=== PATIENT | female | born 1935 | race Caucasian/White ===

== ENCOUNTER 2020-11-19 11:20 | Inpatient (IN) ==
[2020-11-19 11:30] VITALS: BMI 27.4
[2020-11-19 12:55] LABS: BILIRUBIN,URINE NEGATIVE (NEGATIVE); BLOOD/HEMOGLOBIN,URINE 2+ (NEGATIVE); GLUCOSE, URINE NEGATIVE (NEGATIVE); KETONES,URINE NEGATIVE (NEGATIVE); LEUKOCYTE ESTERASE ,URINE 2+ (NEGATIVE); NITRITES,URINE POSITIVE (NEGATIVE); PROTEIN,URINE 3+ (NEGATIVE); UROBILINOGEN,URINE 1+ (NORMAL)
[2020-11-19 13:08] LABS: APPEARANCE,URINE CLEAR (CLEAR); BACTERIA,URINE 2+ /HPF (NEGATIVE); COLOR,URINE AMBER (YELLOW); RBC,URINE 0-2 /HPF (0-3); SQUAMOUS EPITHELIAL CELL,UR FEW /HPF (NEGATIVE)
[2020-11-19 14:39] LABS: BASOPHILS # (AUTO) 0.1 X10^3/uL (0.0-0.1); BLOOD UREA NITROGEN 45 mg/dL (7-18); CALCIUM 10.2 mg/dL (8.5-10.1); CARBON DIOXIDE 22.9 mmol/L (21-32); CHLORIDE 98 mmol/L (98-107); CREATININE 2.71 mg/dL (0.55-1.02); EOSINOPHILS # (AUTO) 0.3 x10^3/uL (0.0-0.2); HEMATOCRIT 42.5 % (36.0-47.0); HEMOGLOBIN 14.3 g/dL (12.0-16.0); LYMPHOCYTES # (AUTO) 1.4 X10^3/uL (1.3-2.9); LYMPHOCYTES % (AUTO) 18.8 % (21.0-51.0); MEAN CORPUSCULAR HEMOGLOBIN 32.7 pg (27.0-34.0); MEAN CORPUSCULAR HGB CONC 33.6 g/dL (33.0-35.0); MEAN CORPUSCULAR VOLUME 97.1 fL (80.0-100.0); MONOCYTES # (AUTO) 0.8 x10^3/uL (0.3-0.8); MONOCYTES % (AUTO) 11.2 % (0.0-13.0); NEUTROPHILS # (AUTO) 4.8 x10^3/uL (2.2-4.8); PLATELET COUNT 212 X10^3/uL (150.0-450.0); RED BLOOD COUNT 4.38 X10^6/uL (3.5-5.4); SODIUM 128 mmol/L (136-145); WHITE BLOOD COUNT 7.3 X10^3/uL (3.6-10.0); eGFR NON BLACK RACES 18 (>60)
[2020-11-19 14:43] LABS: ALANINE AMINOTRANSFERASE 31 Units/L (12-78); ALBUMIN 4.1 g/dL (3.4-5.0); ALKALINE PHOSPHATASE 54 Units/L (46-116); ASPARTATE AMINO TRANSFERASE 27 Units/L (15-37); TOTAL PROTEIN 7.7 g/dL (6.4-8.2)
--- NOTE | 2020-11-19 14:56 | DR.GENAD ---
HPI Time Seen Time Seen by Provider: 11/19/20 14:54 PCP Primary Care Physician: ALEX LEA HPI Comment HPI Comment: Patient presents for evaluation of abnormal outpatient labs. Called by her doctor today with elevated potassium and advised to come to ED. notes that she has had some N/V and muscle cramping. Patient had been treated with Bactrim for UTI. Complaint/Symptoms Chief Complaint:: PT. SEEN PCP ON 11/16/20 AND HAD LAB WORK. PT. WAS CALLED THIS MORNING AND TOLD TO COME TO THE ER FOR EVALUATION DUE TO ELEVATED POTASSIUM LEVEL. PT. STATES SHE WAS PLACED ON BACTRIM ON SUNDAY PER PCP DUE TO BRONCHITIS. COVID-19 Coronavirus risk:travel/contact w/high risk person: No Has patient experienced Coronavirus symptoms: No Source History Provided: Patient Mode of Arrival Mode of Arrival: Ambulatory Timing Onset of Chief Complaint: 11/16/20 PMH PMH Past Medical History: Yes Past Medical History: Hypertension Past Surgical History: Yes Surgical History: Cholecystectomy, Hysterectomy and Other Past Surgical History Comment: PACEMAKER Family History History of Family Medical Conditions: No Social History Does patient currently use any type of tobacco product: No Have you used tobacco products in the last 12 months: No Type of Tobacco Use: None Does any household member use tobacco: No Alcohol Use: None Do you use any recreational Drugs:: No Lives With: Family Lives Where: Home Travel Risk Coronavirus risk:travel/contact w/high risk person: No Has patient experienced Coronavirus symptoms: No Infectious screening In the last 2 months have you had wt loss of >10#?: NO Have you had fever, night sweats or hemotysis?: No Have you traveled outside the country in the last 6 months?: No Isolation: Standard ROS Review of Systems Constitutional: See HPI Gastrointestinal/Abdominal: Nausea Musculoskeletal: Muscle Pain, Right, Left and Leg All Other Systems: Reviewed and Negative PE Vital Signs Vitals: Temperature 97.9 F Pulse Rate 60 Respiratory Rate 15 Blood Pressure 173/73 O2 Sat by Pulse Oximetry 96 General Limitations: No Limitations General Appearance: Alert and In No Apparent Distress Head Head Exam: Normal Inspection, Atraumatic and Normocephalic Eyes Eye exam: Normal Appearance and EOMI ENT ENT Exam: Normal Exam Neck Neck Exam: Normal Inspection and Trachea Midline Chest Chest Inspection: Normal Inspection and Symmetric Chest Wall Rise Respiratory Respiratory Exam: Normal Lung Sounds Bilat Respiratory Exam: Bilateral: Clear to Auscultation Cardiovascular Cardiovascular Exam: Regular Rate, Normal Rhythm and Normal Heart Sounds Abdominal Exam Abdominal Exam: Normal Inspection, Normal Bowel Sounds and Soft Extremities Extremities Exam: Normal Inspection and Other (non-tender, no swelling, no palpable cords) Neurologic Neurological Exam: Alert and Oriented X3 Psychiatric Psychiatric Exam: Normal Affect and Normal Mood Skin Skin Exam: Warm, Dry and Intact COURSE Consultation Called: 17:35 Consultation Comments: Spoke with Dr. Xavier who accepts patient for admission ROR Labs Reviewed Laboratory Results Reviewed?: Yes Result Diagrams: 11/19/20 14:16 11/19/20 14:16 Laboratory: WBC 7.3 X10^3/uL (3.6-10.0) 11/19/20 14:16 RBC 4.38 X10^6/uL (3.5-5.4) 11/19/20 14:16 Hgb 14.3 g/dL (12.0-16.0) 11/19/20 14:16 Hct 42.5 % (36.0-47.0) 11/19/20 14:16 MCV 97.1 fL (80.0-100.0) 11/19/20 14:16 MCH 32.7 pg (27.0-34.0) 11/19/20 14:16 MCHC 33.6 g/dL (33.0-35.0) 11/19/20 14:16 RDW 13.0 % (11.6-16.5) 11/19/20 14:16 Plt Count 212 X10^3/uL (150.0-450.0) 11/19/20 14:16 MPV 8.0 fL (7.4-11.0) 11/19/20 14:16 Neut % (Auto) 65.0 % (42.0-75.0) 11/19/20 14:16 Lymph % (Auto) 18.8 % (21.0-51.0) L 11/19/20 14:16 [place] % (Auto) 11.2 % (0.0-13.0) 11/19/20 14:16 Eos % (Auto) 4.0 % (0.9-2.9) H 11/19/20 14:16 Baso % (Auto) 1.0 % (0.2-1.0) 11/19/20 14:16 Neut # (Auto) 4.8 x10^3/uL (2.2-4.8) 11/19/20 14:16 Lymph # (Auto) 1.4 X10^3/uL (1.3-2.9) 11/19/20 14:16 [place] # (Auto) 0.8 x10^3/uL (0.3-0.8) 11/19/20 14:16 Eos # (Auto) 0.3 x10^3/uL (0.0-0.2) H 11/19/20 14:16 Baso # (Auto) 0.1 X10^3/uL (0.0-0.1) 11/19/20 14:16 Absolute Nucleated RBC 0.1 /100WBC 11/19/20 14:16 Sodium 128 mmol/L (136-145) L 11/19/20 14:16 Corrected Sodium TNP 11/19/20 14:16 Potassium 7.0 mmol/L (3.5-5.1) H* 11/19/20 14:16 Chloride 98 mmol/L (98-107) 11/19/20 14:16 Carbon Dioxide 22.9 mmol/L (21-32) 11/19/20 14:16 BUN 45 mg/dL (7-18) H 11/19/20 14:16 Creatinine 2.71 mg/dL (0.55-1.02) H 11/19/20 14:16 Est GFR (MDRD) Af Amer 21 (>60) L 11/19/20 14:16 Est GFR (MDRD) Non-Af 18 (>60) L 11/19/20 14:16 Glucose 81 mg/dL (65-99) 11/19/20 14:16 Calcium 10.2 mg/dL (8.5-10.1) H 11/19/20 14:16 Corrected Calcium TNP 11/19/20 14:16 Total Bilirubin 0.40 mg/dL (0.2-1.0) 11/19/20 14:16 AST 27 Units/L (15-37) 11/19/20 14:16 ALT 31 Units/L (12-78) 11/19/20 14:16 Alkaline Phosphatase 54 Units/L (46-116) 11/19/20 14:16 Creatine Kinase 67 Units/L (26-192) 11/19/20 14:06 CK-MB (CK-2) 2.0 ng/mL (0-4.0) 11/19/20 14:06 CK/CKMB % Calc 3.0 % (<4) 11/19/20 14:06 Troponin I < 0.02 ng/mL (0-1.5) 11/19/20 14:06 Total Protein 7.7 g/dL (6.4-8.2) 11/19/20 14:16 Albumin 4.1 g/dL (3.4-5.0) 11/19/20 14:16 Globulin 3.6 g/dL (2.5-4.5) 11/19/20 14:16 Albumin/Globulin Ratio 1.1 Ratio (1.1-2.1) 11/19/20 14:16 Specimen Type Clean catch urine 11/19/20 11:55 Urine Color Bee (YELLOW) 11/19/20 11:55 Urine Appearance Clear (CLEAR) 11/19/20 11:55 Urine pH 5.0 (5.0 - 8.0) 11/19/20 11:55 Ur Specific [place] 1.010 (1.000-1.030) 11/19/20 11:55 Urine Protein 3+ (NEGATIVE) 11/19/20 11:55 Urine Glucose (UA) Negative (NEGATIVE) 11/19/20 11:55 Urine Ketones Negative (NEGATIVE) 11/19/20 11:55 Urine Occult Blood 2+ (NEGATIVE) 11/19/20 11:55 Urine Nitrite Positive (NEGATIVE) 11/19/20 11:55 Urine Bilirubin Negative (NEGATIVE) 11/19/20 11:55 Urine Urobilinogen 1+ (NORMAL) 11/19/20 11:55 Ur Leukocyte Esterase 2+ (NEGATIVE) 11/19/20 11:55 Urine RBC 0-2 /HPF (0-3) 11/19/20 11:55 Urine WBC 10-20 /HPF (0-5) A 11/19/20 11:55 Ur Squamous Epith Cells Few /HPF (NEGATIVE) 11/19/20 11:55 Urine Bacteria 2+ /HPF (NEGATIVE) 11/19/20 11:55 Ur Culture Indicated? Yes/culture set up 11/19/20 11:55 SARS CoV-2 RNA Rapid DISHA Negative (NEGATIVE) 11/19/20 16:42 Opioid Opioid Risk Tool Age (Raz box if 16-45): No History of Preadolescent Sexual Abuse: No Total: 0 Total Score Risk Category: Low Risk Copyright: Yadiel WARREN predicting aberrant behaviors Diagnosis Discharge Problem: Acute hyperkalemia Acute renal failure Qualifiers: Acute renal failure type: unspecified Qualified Code(s): N17.9 - Acute kidney failure, unspecified
[2020-11-19] MEDS ORDERED: HumuLIN R IV ONE (15:09)
[2020-11-19] MEDS ORDERED: CALCIUM GLUCONATE 10% 1 G in NS 100 ML IV 100 ML IV ONE (15:09)
[2020-11-19] MEDS ORDERED: KAYEXALATE SUSP ONE (15:40)
[2020-11-19] MEDS ORDERED: HumuLIN R ONE (15:42)
[2020-11-19] MEDS ORDERED: KAYEXALATE SUSP PO NR (16:00)
[2020-11-19 16:24] LABS: CREATINE KINASE 67 Units/L (26-192); TROPONIN I < 0.02 ng/mL (0-1.5)
[2020-11-19] MEDS ORDERED: NS 1000 ML 1,000 ML ONE (18:29)
[2020-11-19] MEDS: NS 1000 ML 1,000 ML IV SCH (18:51)
[2020-11-19] MEDS: SNACK - Diabetic Appropriate PO SCH (20:00)
[2020-11-19] MEDS: VIBRAMYCIN PO SCH (20:06)
[2020-11-19 22:18] LABS: CALCIUM 9.6 mg/dL (8.5-10.1); CARBON DIOXIDE 26.6 mmol/L (21-32); CREATININE 2.62 mg/dL (0.55-1.02)
[2020-11-19] MEDS: REQUIP PO SCH (23:49)
[2020-11-20] MEDS: NS 1000 ML 1,000 ML IV SCH ×2 (06:01→21:21)
[2020-11-20 06:19] LABS: MEAN CORPUSCULAR HEMOGLOBIN 32.1 pg (27.0-34.0); MEAN CORPUSCULAR HGB CONC 33.1 g/dL (33.0-35.0)
[2020-11-20 06:26] LABS: ALANINE AMINOTRANSFERASE 29 Units/L (12-78); ALBUMIN 3.5 g/dL (3.4-5.0); ALKALINE PHOSPHATASE 48 Units/L (46-116); ASPARTATE AMINO TRANSFERASE 24 Units/L (15-37); BLOOD UREA NITROGEN 40 mg/dL (7-18); CALCIUM 9.3 mg/dL (8.5-10.1); CARBON DIOXIDE 24.4 mmol/L (21-32); CHLORIDE 106 mmol/L (98-107); CREATININE 2.48 mg/dL (0.55-1.02); SODIUM 136 mmol/L (136-145); TOTAL PROTEIN 6.7 g/dL (6.4-8.2); eGFR NON BLACK RACES 20 (>60)
[2020-11-20 06:58] LABS: HEMATOCRIT 41.5 % (36.0-47.0); HEMOGLOBIN 13.8 g/dL (12.0-16.0); MEAN CORPUSCULAR VOLUME 97.1 fL (80.0-100.0); PLATELET COUNT 205 X10^3/uL (150.0-450.0); RED BLOOD COUNT 4.28 X10^6/uL (3.5-5.4); RED CELL DISTRIBUTION WIDTH 13.3 % (11.6-16.5); WHITE BLOOD COUNT 6.7 X10^3/uL (3.6-10.0)
[2020-11-20 06:59] LABS: BASOPHILS # (AUTO) 0.1 X10^3/uL (0.0-0.1); BASOPHILS % (AUTO) 1.9 % (0.2-1.0); EOSINOPHILS # (AUTO) 0.4 x10^3/uL (0.0-0.2); EOSINOPHILS % (AUTO) 6.1 % (0.9-2.9); LYMPHOCYTES # (AUTO) 1.5 X10^3/uL (1.3-2.9); LYMPHOCYTES % (AUTO) 22.1 % (21.0-51.0); MONOCYTES # (AUTO) 0.9 x10^3/uL (0.3-0.8); NEUTROPHILS # (AUTO) 3.7 x10^3/uL (2.2-4.8); NEUTROPHILS % (AUTO) 55.9 % (42.0-75.0)
[2020-11-20 07:00] LABS: PLATELET MORPHOLOGY COMMENT NORMAL (NORMAL)
[2020-11-20] MEDS: VIBRAMYCIN PO SCH (09:14)
[2020-11-20] MEDS: COREG TAB 25 MG PO SCH ×2 (09:14→21:22)
[2020-11-20] MEDS: ROCEPHIN VIAL 1 GRAM 1 G in NS 100 ML IV + SPIKE MINIBAG* 100 ML IV SCH (10:00)
[2020-11-20] MEDS: KAYEXALATE SUSP PO SCH ×2 (10:01→21:21)
[2020-11-20] MEDS: HEPARIN SODIUM INJ 5000 UNITS IVP SCH ×2 (10:01→21:15)
--- NOTE | 2020-11-20 11:04 | DR.H&P ---
H&P History & Physical for Day of: H&P Date: 11/20/20 Chief Complaint Chief Complaint: weakness, cramps and abnormal labs Allergies Allergies Allergy/AdvReac Type Severity Reaction Status Date / Time amlodipine [From [facility]] Allergy Verified 11/19/20 11:31 History of Present Illness History of Present Illness: Ms. Mercado is a 85y/o female who presented with ab normal labs done at her PCP office on . Patient was being treated for UTI and started on Bactrim. She had labs done and was told yesterday that her potassium was elevated. She states she only took Bactrim for 2 days because it made her feel sick. She has a hx of atrial fibrillation s/p pacemaker, urinary incontinence and HTN. Patient reports feeling better this AM. She does have productive cough. Denies fever or chills. ED work-up - Labs K 7.0 Cr: 2.71 trop (-) - UA: suggestive of infection - COVID-19 negative She was given calcium gluconate, IV insulin and kayexalate. She was also started on IVF and doxycycline. Plan: potassium improved to 5.8 this AM. Will continue Kayexalate. Continue normal saline at 100cc/hr. Switch doxycycline to Rocephin. Follow urine culture. Hold Eliquis due to poor renal function. Hold aldactone due to hyperkalemia. Will get CXR to rule out infection. Resume home medications. Monitor AM labs. Past Medical History Past Medical History: Hypertension Additional Medical History: Atrial fibrillation Past Surgical History Surgical History: Cholecystectomy and Hysterectomy Social History Does patient currently use any type of tobacco product: No Have you used tobacco products in the last 12 months: No Type of Tobacco Use: None Does any household member use tobacco: No Alcohol Use: None Drug Use: Prescription Drugs Medications Home Medications: amlodipine [From [facility]] Allergy (Verified 11/19/20 11:31) CONTINUE taking the following medications apixaban [Eliquis] 5 mg PO BID 11/19/20 [History] carvedilol 12.5 mg PO BID 11/19/20 [History] cetirizine [Allergy Relief (cetirizine)] 10 mg PO DAILY 11/19/20 [History] mirabegron [Myrbetriq] 25 mg PO DAILY 11/19/20 [History] ropinirole 0.25 mg PO HS 11/19/20 [History] spironolactone 25 mg PO BID 11/19/20 [History] sulfamethoxazole-trimethoprim [Bactrim DS] 1 tab PO BID 11/19/20 [History] Labs Result Diagrams: 11/20/20 05:29 11/20/20 05:29 Labs: 11/19/20 11:55 Urine,Clean Catch Urine Culture - Preliminary Laboratory WBC 6.7 X10^3/uL (3.6-10.0) 11/20/20 05:29 RBC 4.28 X10^6/uL (3.5-5.4) 11/20/20 05:29 Hgb 13.8 g/dL (12.0-16.0) 11/20/20 05:29 Hct 41.5 % (36.0-47.0) 11/20/20 05:29 MCV 97.1 fL (80.0-100.0) 11/20/20 05:29 MCH 32.1 pg (27.0-34.0) 11/20/20 05:29 MCHC 33.1 g/dL (33.0-35.0) 11/20/20 05:29 RDW 13.3 % (11.6-16.5) 11/20/20 05:29 Plt Count 205 X10^3/uL (150.0-450.0) 11/20/20 05:29 Plt Count Comment Adequate (ADEQUATE) 11/20/20 05:29 MPV 8.0 fL (7.4-11.0) 11/20/20 05:29 Neut % (Auto) 55.9 % (42.0-75.0) 11/20/20 05:29 Lymph % (Auto) 22.1 % (21.0-51.0) 11/20/20 05:29 [place] % (Auto) 14.0 % (0.0-13.0) H 11/20/20 05:29 Eos % (Auto) 6.1 % (0.9-2.9) H 11/20/20 05:29 Baso % (Auto) 1.9 % (0.2-1.0) H 11/20/20 05:29 Neut # (Auto) 3.7 x10^3/uL (2.2-4.8) 11/20/20 05:29 Lymph # (Auto) 1.5 X10^3/uL (1.3-2.9) 11/20/20 05:29 [place] # (Auto) 0.9 x10^3/uL (0.3-0.8) H 11/20/20 05:29 Eos # (Auto) 0.4 x10^3/uL (0.0-0.2) H 11/20/20 05:29 Baso # (Auto) 0.1 X10^3/uL (0.0-0.1) 11/20/20 05:29 Absolute Nucleated RBC 0.1 /100WBC 11/20/20 05:29 Total Counted 100 11/20/20 05:29 Neutrophils % (Manual) 63 % (39-76) 11/20/20 05:29 Lymphocytes % (Manual) 20 % (13-43) 11/20/20 05:29 Monocytes % (Manual) 12 % (4-9) H 11/20/20 05:29 Eosinophils % (Manual) 5 % (0-6) 11/20/20 05:29 Plt Morphology Comment Normal (NORMAL) 11/20/20 05:29 RBC Morphology Normal (NORMAL) 11/20/20 05:29 Sodium 136 mmol/L (136-145) 11/20/20 05:29 Corrected Sodium TNP 11/20/20 05:29 Potassium 5.8 mmol/L (3.5-5.1) H 11/20/20 05:29 Chloride 106 mmol/L (98-107) 11/20/20 05:29 Carbon Dioxide 24.4 mmol/L (21-32) 11/20/20 05:29 BUN 40 mg/dL (7-18) H 11/20/20 05:29 Creatinine 2.48 mg/dL (0.55-1.02) H 11/20/20 05:29 Est GFR (MDRD) Af Amer 24 (>60) L 11/20/20 05:29 Est GFR (MDRD) Non-Af 20 (>60) L 11/20/20 05:29 Glucose 80 mg/dL (65-99) 11/20/20 05:29 POC Glucose (mg/dL) 77 mg/dL (65-99) 11/20/20 05:41 Calcium 9.3 mg/dL (8.5-10.1) 11/20/20 05:29 Corrected Calcium TNP 11/20/20 05:29 Total Bilirubin 0.30 mg/dL (0.2-1.0) 11/20/20 05:29 AST 24 Units/L (15-37) 11/20/20 05:29 ALT 29 Units/L (12-78) 11/20/20 05:29 Alkaline Phosphatase 48 Units/L (46-116) 11/20/20 05:29 Creatine Kinase 67 Units/L (26-192) 11/19/20 14:06 CK-MB (CK-2) 2.0 ng/mL (0-4.0) 11/19/20 14:06 CK/CKMB % Calc 3.0 % (<4) 11/19/20 14:06 Troponin I < 0.02 ng/mL (0-1.5) 11/19/20 14:06 Total Protein 6.7 g/dL (6.4-8.2) 11/20/20 05:29 Albumin 3.5 g/dL (3.4-5.0) 11/20/20 05:29 Globulin 3.2 g/dL (2.5-4.5) 11/20/20 05:29 Albumin/Globulin Ratio 1.1 Ratio (1.1-2.1) 11/20/20 05:29 Specimen Type Clean catch urine 11/19/20 11:55 Urine Color Bee (YELLOW) 11/19/20 11:55 Urine Appearance Clear (CLEAR) 11/19/20 11:55 Urine pH 5.0 (5.0 - 8.0) 11/19/20 11:55 Ur Specific [place] 1.010 (1.000-1.030) 11/19/20 11:55 Urine Protein 3+ (NEGATIVE) 11/19/20 11:55 Urine Glucose (UA) Negative (NEGATIVE) 11/19/20 11:55 Urine Ketones Negative (NEGATIVE) 11/19/20 11:55 Urine Occult Blood 2+ (NEGATIVE) 11/19/20 11:55 Urine Nitrite Positive (NEGATIVE) 11/19/20 11:55 Urine Bilirubin Negative (NEGATIVE) 11/19/20 11:55 Urine Urobilinogen 1+ (NORMAL) 11/19/20 11:55 Ur Leukocyte Esterase 2+ (NEGATIVE) 11/19/20 11:55 Urine RBC 0-2 /HPF (0-3) 11/19/20 11:55 Urine WBC 10-20 /HPF (0-5) A 11/19/20 11:55 Ur Squamous Epith Cells Few /HPF (NEGATIVE) 11/19/20 11:55 Urine Bacteria 2+ /HPF (NEGATIVE) 11/19/20 11:55 Ur Culture Indicated? Yes/culture set up 11/19/20 11:55 SARS CoV-2 RNA Rapid DISHA Negative (NEGATIVE) 11/19/20 16:42 Review of Systems Constitutional: Weakness Eyes: No Symptoms Reported ENT: No Symptoms Reported Respiratory: Cough and Sputum Cardiovascular: No Symptoms Reported Gastrointestinal: Nausea Genitourinary: Incontinence Musculoskeletal: Leg Pain Skin: No Symptoms Reported Neurological: No Symptoms Reported Physical Exam Vital Signs: Temperature 97.1 F Pulse Rate [Right Brachial] 117 Pulse Rate 60 Respiratory Rate 18 Blood Pressure [Right Arm] 144/65 Blood Pressure 173/69 O2 Sat by Pulse Oximetry 97 Oriented: Normal Eyes: Normal Ear: Normal Nose: Normal Throat: Normal Respiratory: Diminished Throughout Cardiovascular: Normal Auscultation: Bowel Sounds: Normal Palpation: Normal Tenderness: Normal Skin: Decreased [place] Musculoskeletal: Normal Psychiatric: Normal Mood Description: Calm Affect: Normal Speech Pattern: Clear and Appropriate Assessment/Plan (1) Acute renal failure: Qualifiers: Acute renal failure type: unspecified Qualified Code(s): N17.9 - Acute kidney failure, unspecified Status: Acute (2) Acute hyperkalemia: Status: Acute (3) UTI (urinary tract infection): Qualifiers: Hematuria presence: without hematuria Urinary tract infection type: acute cystitis Qualified Code(s): N30.00 - Acute cystitis without hematuria Status: Acute (4) Pacemaker: Status: Acute (5) Urinary incontinence: Qualifiers: Urinary Incontinence type: unspecified incontinence Qualified Code(s): R32 - Unspecified urinary incontinence Status: Acute (6) Atrial fibrillation: Qualifiers: Atrial fibrillation type: unspecified chronic Qualified Code(s): I48.20 - Chronic atrial fibrillation, unspecified Status: Acute Review H&P Reviewed: Yes Patient was examined?: Yes
--- NOTE | 2020-11-20 12:35 | RAD ---
HISTORYProductive cough renal failureSTUDYAP [id number] mild cardiac enlargement with pacemaker. The lungs and pleural spaces remain clear. There is no evidence for CHF or pneumonia.IMPRESSIONNo interval change or acute chest abnormality demonstrated.Electronically signed by: SOLO CRAMER (Nov 20, 2020 12:32:50)
[2020-11-20] MEDS: REQUIP PO SCH (21:21)
[2020-11-20] MEDS: SNACK - Diabetic Appropriate PO SCH (21:22)
[2020-11-21] MEDS: ZOFRAN INJ 4 MG VIAL IVP PRN ×2 (03:39→14:06)
[2020-11-21 06:42] LABS: BASOPHILS # (AUTO) 0.2 X10^3/uL (0.0-0.1); BASOPHILS % (AUTO) 3.5 % (0.2-1.0); EOSINOPHILS # (AUTO) 0.4 x10^3/uL (0.0-0.2); EOSINOPHILS % (AUTO) 6.9 % (0.9-2.9); HEMATOCRIT 39.3 % (36.0-47.0); HEMOGLOBIN 12.9 g/dL (12.0-16.0); LYMPHOCYTES % (AUTO) 15.8 % (21.0-51.0); MEAN CORPUSCULAR HEMOGLOBIN 32.2 pg (27.0-34.0); MEAN CORPUSCULAR HGB CONC 32.8 g/dL (33.0-35.0); MEAN CORPUSCULAR VOLUME 98.2 fL (80.0-100.0); MEAN PLATELET VOLUME 8.2 fL (7.4-11.0); MONOCYTES % (AUTO) 16.6 % (0.0-13.0); NEUTROPHILS # (AUTO) 3.6 x10^3/uL (2.2-4.8); NEUTROPHILS % (AUTO) 57.2 % (42.0-75.0); PLATELET COUNT 203 X10^3/uL (150.0-450.0); RED CELL DISTRIBUTION WIDTH 13.5 % (11.6-16.5); WHITE BLOOD COUNT 6.2 X10^3/uL (3.6-10.0)
[2020-11-21 07:12] LABS: BLOOD UREA NITROGEN 31 mg/dL (7-18); CALCIUM 8.6 mg/dL (8.5-10.1); CARBON DIOXIDE 22.7 mmol/L (21-32); CHLORIDE 110 mmol/L (98-107); CREATININE 2.05 mg/dL (0.55-1.02); SODIUM 140 mmol/L (136-145); eGFR NON BLACK RACES 24 (>60)
[2020-11-21] MEDS: HEPARIN SODIUM INJ 5000 UNITS IVP SCH (08:01)
[2020-11-21] MEDS: ROCEPHIN VIAL 1 GRAM 1 G in NS 100 ML IV + SPIKE MINIBAG* 100 ML IV SCH (08:02)
[2020-11-21] MEDS: KAYEXALATE SUSP PO SCH ×3 (09:48→20:20)
[2020-11-21] MEDS: COREG TAB 25 MG PO SCH ×2 (09:48→20:13)
[2020-11-21] MEDS: NS 1000 ML 1,000 ML IV SCH ×2 (09:49→22:16)
[2020-11-21] MEDS: ELIQUIS PO SCH ×2 (10:14→20:13)
[2020-11-21] MEDS ORDERED: TYLENOL 325 MG TAB PO PRN (18:56)
--- NOTE | 2020-11-21 19:00 | PCM.PROG ---
Progress Note Progress Note for Day of Date of Exam: 11/22/20 Subjective Subjective: Patient seen at bedside, no overnight events. She states she feels better. She has been ambulating to the bathroom. She still feels weak. She has been eating well. She states cough is better. Denies fever or chills. Labs: K: 4.9 Cr: 2.05 CXR: no acute process Urine Cx: klebsiella Plan: continue gentle hydration, PT/OT consult. Continue Rocephin. Resume eliquis since renal function has improved. Asked the nurse to ambulate with patient in the room and see how she feels. Patient states she does have family at home to take care of her. Discussed that if she is feeling better by this afternoon/evening then can discharge her home or likely tomorrow. Patient verbalized understanding. She will f/u with PCP in 3 days to repeat BMP. Past Medical Family Social History Past Med/Fam/Surg Hx: No changes since H&P Allergies: Allergies amlodipine [From [facility]] Allergy (Verified 11/19/20 11:31) Review of Systems ROS: No change since H&P Vital Signs and I&O's Vital Signs: Temperature 98.6 F Pulse Rate [Right Brachial] 95 Pulse Rate 60 Respiratory Rate 20 Blood Pressure [Right Arm] 161/80 Blood Pressure 173/69 O2 Sat by Pulse Oximetry 95 Intake and Output: Intake & Output 11/18/20 11/19/20 11/20/20 11/21/20 23:59 23:59 23:59 23:59 Intake Total 505 / 505 2159 / 2159 1497 / 1497 Output Total 350 / 350 Balance 505 / 505 2159 / 2159 1147 / 1147 Physical Exam Oriented: Normal Eyes: Normal Ear: Normal Nose: Normal Throat: Normal Respiratory: Generalized and Diminished Cardiovascular: Normal Auscultation: Bowel Sounds: Normal Tenderness: Normal Skin: Decreased [place]urg[place] Musculoskeletal: Normal Psychiatric: Normal Mood Description: Calm Affect: Normal Speech Pattern: Clear Laboratory and Diagnostics Result Diagrams: 11/22/20 06:14 11/22/20 06:14 Labs: 11/19/20 11:55 Urine,Clean Catch Urine Culture - Final Klebsiella Pneumoniae Laboratory WBC 6.2 X10^3/uL (3.6-10.0) 11/21/20 05:19 RBC 4.00 X10^6/uL (3.5-5.4) 11/21/20 05:19 Hgb 12.9 g/dL (12.0-16.0) 11/21/20 05:19 Hct 39.3 % (36.0-47.0) 11/21/20 05:19 MCV 98.2 fL (80.0-100.0) 11/21/20 05:19 MCH 32.2 pg (27.0-34.0) 11/21/20 05:19 MCHC 32.8 g/dL (33.0-35.0) L 11/21/20 05:19 RDW 13.5 % (11.6-16.5) 11/21/20 05:19 Plt Count 203 X10^3/uL (150.0-450.0) 11/21/20 05:19 Plt Count Comment Adequate (ADEQUATE) 11/20/20 05:29 MPV 8.2 fL (7.4-11.0) 11/21/20 05:19 Neut % (Auto) 57.2 % (42.0-75.0) 11/21/20 05:19 Lymph % (Auto) 15.8 % (21.0-51.0) L 11/21/20 05:19 [place] % (Auto) 16.6 % (0.0-13.0) H 11/21/20 05:19 Eos % (Auto) 6.9 % (0.9-2.9) H 11/21/20 05:19 Baso % (Auto) 3.5 % (0.2-1.0) H 11/21/20 05:19 Neut # (Auto) 3.6 x10^3/uL (2.2-4.8) 11/21/20 05:19 Lymph # (Auto) 1.0 X10^3/uL (1.3-2.9) L 11/21/20 05:19 [place] # (Auto) 1.0 x10^3/uL (0.3-0.8) H 11/21/20 05:19 Eos # (Auto) 0.4 x10^3/uL (0.0-0.2) H 11/21/20 05:19 Baso # (Auto) 0.2 X10^3/uL (0.0-0.1) H 11/21/20 05:19 Absolute Nucleated RBC 0.0 /100WBC 11/21/20 05:19 Total Counted 100 11/20/20 05:29 Neutrophils % (Manual) 63 % (39-76) 11/20/20 05:29 Lymphocytes % (Manual) 20 % (13-43) 11/20/20 05:29 Monocytes % (Manual) 12 % (4-9) H 11/20/20 05:29 Eosinophils % (Manual) 5 % (0-6) 11/20/20 05:29 Plt Morphology Comment Normal (NORMAL) 11/20/20 05:29 RBC Morphology Normal (NORMAL) 11/20/20 05:29 Sodium 140 mmol/L (136-145) 11/21/20 05:19 Corrected Sodium TNP 11/21/20 05:19 Potassium 4.9 mmol/L (3.5-5.1) 11/21/20 05:19 Chloride 110 mmol/L (98-107) H 11/21/20 05:19 Carbon Dioxide 22.7 mmol/L (21-32) 11/21/20 05:19 BUN 31 mg/dL (7-18) H 11/21/20 05:19 Creatinine 2.05 mg/dL (0.55-1.02) H 11/21/20 05:19 Est GFR (MDRD) Af Amer 30 (>60) L 11/21/20 05:19 Est GFR (MDRD) Non-Af 24 (>60) L 11/21/20 05:19 Glucose 82 mg/dL (65-99) 11/21/20 05:19 POC Glucose (mg/dL) 100 mg/dL (65-99) H 11/21/20 16:38 Calcium 8.6 mg/dL (8.5-10.1) 11/21/20 05:19 Corrected Calcium TNP 11/20/20 05:29 Total Bilirubin 0.30 mg/dL (0.2-1.0) 11/20/20 05:29 AST 24 Units/L (15-37) 11/20/20 05:29 ALT 29 Units/L (12-78) 11/20/20 05:29 Alkaline Phosphatase 48 Units/L (46-116) 11/20/20 05:29 Creatine Kinase 67 Units/L (26-192) 11/19/20 14:06 CK-MB (CK-2) 2.0 ng/mL (0-4.0) 11/19/20 14:06 CK/CKMB % Calc 3.0 % (<4) 11/19/20 14:06 Troponin I < 0.02 ng/mL (0-1.5) 11/19/20 14:06 Total Protein 6.7 g/dL (6.4-8.2) 11/20/20 05:29 Albumin 3.5 g/dL (3.4-5.0) 11/20/20 05:29 Globulin 3.2 g/dL (2.5-4.5) 11/20/20 05:29 Albumin/Globulin Ratio 1.1 Ratio (1.1-2.1) 11/20/20 05:29 Specimen Type Clean catch urine 11/19/20 11:55 Urine Color Bee (YELLOW) 11/19/20 11:55 Urine Appearance Clear (CLEAR) 11/19/20 11:55 Urine pH 5.0 (5.0 - 8.0) 11/19/20 11:55 Ur Specific [place] 1.010 (1.000-1.030) 11/19/20 11:55 Urine Protein 3+ (NEGATIVE) 11/19/20 11:55 Urine Glucose (UA) Negative (NEGATIVE) 11/19/20 11:55 Urine Ketones Negative (NEGATIVE) 11/19/20 11:55 Urine Occult Blood 2+ (NEGATIVE) 11/19/20 11:55 Urine Nitrite Positive (NEGATIVE) 11/19/20 11:55 Urine Bilirubin Negative (NEGATIVE) 11/19/20 11:55 Urine Urobilinogen 1+ (NORMAL) 11/19/20 11:55 Ur Leukocyte Esterase 2+ (NEGATIVE) 11/19/20 11:55 Urine RBC 0-2 /HPF (0-3) 11/19/20 11:55 Urine WBC 10-20 /HPF (0-5) A 11/19/20 11:55 Ur Squamous Epith Cells Few /HPF (NEGATIVE) 11/19/20 11:55 Urine Bacteria 2+ /HPF (NEGATIVE) 11/19/20 11:55 Ur Culture Indicated? Yes/culture set up 11/19/20 11:55 SARS CoV-2 RNA Rapid DISHA Negative (NEGATIVE) 11/19/20 16:42 Plan (1) Acute renal failure: Status: Acute Qualifiers: Acute renal failure type: unspecified Qualified Code(s): N17.9 - Acute kidney failure, unspecified (2) Acute hyperkalemia: Status: Acute (3) UTI (urinary tract infection): Status: Acute Qualifiers: Hematuria presence: without hematuria Urinary tract infection type: acute cystitis Qualified Code(s): N30.00 - Acute cystitis without hematuria (4) Pacemaker: Status: Acute (5) Urinary incontinence: Status: Acute Qualifiers: Urinary Incontinence type: unspecified incontinence Qualified Code(s): R32 - Unspecified urinary incontinence (6) Atrial fibrillation: Status: Acute Qualifiers: Atrial fibrillation type: unspecified chronic Qualified Code(s): I48.20 - Chronic atrial fibrillation, unspecified
[2020-11-21] MEDS: SNACK - Diabetic Appropriate PO SCH (20:13)
[2020-11-21] MEDS: REQUIP PO SCH (20:14)
[2020-11-22] MEDS: NS 1000 ML 1,000 ML IV SCH ×3 (04:46→17:44)
[2020-11-22 06:42] LABS: BASOPHILS # (AUTO) 0.2 X10^3/uL (0.0-0.1); BASOPHILS % (AUTO) 3.3 % (0.2-1.0); EOSINOPHILS # (AUTO) 0.4 x10^3/uL (0.0-0.2); EOSINOPHILS % (AUTO) 6.1 % (0.9-2.9); HEMATOCRIT 38.1 % (36.0-47.0); HEMOGLOBIN 12.6 g/dL (12.0-16.0); LYMPHOCYTES % (AUTO) 14.5 % (21.0-51.0); MEAN CORPUSCULAR HEMOGLOBIN 32.2 pg (27.0-34.0); MEAN CORPUSCULAR VOLUME 97.6 fL (80.0-100.0); MEAN PLATELET VOLUME 7.9 fL (7.4-11.0); MONOCYTES # (AUTO) 1.1 x10^3/uL (0.3-0.8); NEUTROPHILS # (AUTO) 4.3 x10^3/uL (2.2-4.8); NEUTROPHILS % (AUTO) 60.1 % (42.0-75.0); PLATELET COUNT 190 X10^3/uL (150.0-450.0); RED CELL DISTRIBUTION WIDTH 13.7 % (11.6-16.5); WHITE BLOOD COUNT 7.1 X10^3/uL (3.6-10.0)
[2020-11-22 06:48] LABS: BLOOD UREA NITROGEN 21 mg/dL (7-18); CALCIUM 7.7 mg/dL (8.5-10.1); CARBON DIOXIDE 23.4 mmol/L (21-32); CHLORIDE 111 mmol/L (98-107); CREATININE 1.58 mg/dL (0.55-1.02); SODIUM 143 mmol/L (136-145); eGFR NON BLACK RACES 33 (>60)
[2020-11-22] MEDS: COREG TAB 25 MG PO SCH ×2 (09:04→21:40)
[2020-11-22] MEDS: ELIQUIS PO SCH ×2 (09:04→21:40)
[2020-11-22] MEDS: ROCEPHIN VIAL 1 GRAM 1 G in NS 100 ML IV + SPIKE MINIBAG* 100 ML IV SCH (09:05)
[2020-11-22] MEDS ORDERED: CATAPRES-TTS-2 TD SCH (10:00)
--- NOTE | 2020-11-22 11:19 | PCM.PROG ---
Progress Note - Progress Note for Day of Date of Exam: 11/22/20 - Subjective Subjective: WAS ADMITTED ON 11/19 FOR TREATMENT OF ACUTE RENAL FAILURE, ACUTE HYPERKALEMIA, AND A URINARY TRACT INFECTION. SHE WAS STARTED ON BACTIM EARLIER IN THE WEEK FOR A UTI AND ACUTE BRONCHITIS, HOWEVER, PATIENT REPORTS THAT SHE ONLY TOOK TWO DOSES BECAUSE IT MADE HER NAUSEATED. OUTPATIENT LABS THAT WERE OBTAINED IN THE OFFICE ALSO REVEALED AN ELEVATED POTASSIUM. SHE WAS INSTRUCTED TO COME TO THE ER FOR FURTHER EVALUATION. PATIENT ADMITTED TO NAUSEA, VOMITING, AND MUSCLE CRAMPING WHEN SHE PRESENTED TO THE ER. WHEN LABS WERE OBTAINED IN THE ER, HER POTASSIUM WAS NOTED TO BE 7.0. SHE WAS GIVEN CALCIUM GLUCONATE, IV INSULIN, AND KAYEXALATE TO BRING DOWN POTASSIUM. SHE WAS ALSO STARTED ON IV FLUIDS AND ROCEPHIN. TODAY, SHE IS ALERT AND ORIENTED, LYING IN BED ON MORNING ROUNDS. SHE REPORTS WEAKNESS AND A PORDUCTIVE COUGH. SHE HAS BEEN EATING WELL. SHE DENIES FEVER OR CHILLS. ON EXAMINATION, HEART IS REGULAR IN RATE AND RHYTHM. BILATERAL LUNGS ARE NOTED WITH DIMINISHED LUNG SOUNDS THROUGHOUT. ABDOMEN IS ROUND, SOFT, AND NON-TENDER WITH NORMAL BOWEL SOUNDS NOTED IN ALL QUADRANTS. HER VITALS THIS MORNING ARE: 98.0-60-18-98%-213/82. LABS WERE OBTAINED. ABNORMAL LAB VALUES INCLUDE THE FOLLOWING: POTASSIUM 5.8, BUN 40, CREATININE 2.48. URINALYSIS REVEALED: WBC 10-20, RBC 0-2, LEUKOCYTES 2+, BACTERIA 2+, NITRITE POSITIVE. URINE CULTURE REVEALED GROWTH OF KLEBSIELLA PNEUMONIAE. IT IS SENSITIVE TO THE ROCEPHIN. EKG REVEALED: SINUS RHYTHM WITH HR 60. SHE IS CURRENTLY RECEIVING NORMAL SALINE AT 100 ML/HR, ROCEPHIN 1G IV DAILY, ELIQUIS 5MG PO BID, COREG 12.5MG PO BID, ZOFRAN 4MG IV Q6H PRN, REQUIP 0.25MG PO HS. TODAY, WE WILL ADD A CLONIDINE 0.2MG/HR TD PATCH. OTHERWISE, WE WILL CONTINUE WITH CURRENT PLAN OF CARE. WE WILL FOLLOW UP WITH AM LABS AND CONTINUE TO MONITOR. TIME SPENT ON CLINICAL ASSESSMENT, REVIEWING LABS AND IMAGING, DECISION MAKING, AND DOCUMENTATION GREATER THAN 75 MINUTES. - Past Medical Family Social History Past Med/Fam/Surg Hx: No changes since H&P Allergies: Allergies [facility] [[facility] Allergy (Verified 11/19/20 11:31) - Review of Systems ROS: No change since H&P - Vital Signs and I&O's Vital Signs: Temperature 98 F Pulse Rate [Right Brachial] 60 Pulse Rate 60 Respiratory Rate 18 Blood Pressure [Right Arm] 213/82 Blood Pressure 173/69 O2 Sat by Pulse Oximetry 98 Intake and Output: Intake & Output 11/19/20 11/20/20 11/21/20 11/22/20 11:59 11:59 11:59 11:59 Intake Total 1024 / 1024 2157 / 2157 3149 / 3149 Output Total 350 / 350 Balance 1024 / 1024 2157 / 2157 2799 / 2799 - Physical Exam Oriented: Normal Eyes: Normal Ear: Normal Nose: Normal Throat: Normal Respiratory: Generalized, Diminished Cardiovascular: Normal : Normal Auscultation: Bowel Sounds: Normal Palpation: Normal Tenderness: Normal Skin: Decreased [place]urg[place] Musculoskeletal: Normal Psychiatric: Normal Mood Description: Calm Affect: Normal Speech Pattern: Clear - Laboratory and Diagnostics Result Diagrams: 11/22/20 06:14 11/22/20 06:14 Labs: 11/19/20 11:55 Urine,Clean Catch Urine Culture - Final Klebsiella Pneumoniae Laboratory WBC 7.1 X10^3/uL (3.6-10.0) 11/22/20 06:14 RBC 3.90 X10^6/uL (3.5-5.4) 11/22/20 06:14 Hgb 12.6 g/dL (12.0-16.0) 11/22/20 06:14 Hct 38.1 % (36.0-47.0) 11/22/20 06:14 MCV 97.6 fL (80.0-100.0) 11/22/20 06:14 MCH 32.2 pg (27.0-34.0) 11/22/20 06:14 MCHC 33.0 g/dL (33.0-35.0) 11/22/20 06:14 RDW 13.7 % (11.6-16.5) 11/22/20 06:14 Plt Count 190 X10^3/uL (150.0-450.0) 11/22/20 06:14 Plt Count Comment Adequate (ADEQUATE) 11/20/20 05:29 MPV 7.9 fL (7.4-11.0) 11/22/20 06:14 Neut % (Auto) 60.1 % (42.0-75.0) 11/22/20 06:14 Lymph % (Auto) 14.5 % (21.0-51.0) L 11/22/20 06:14 [place] % (Auto) 16.0 % (0.0-13.0) H 11/22/20 06:14 Eos % (Auto) 6.1 % (0.9-2.9) H 11/22/20 06:14 Baso % (Auto) 3.3 % (0.2-1.0) H 11/22/20 06:14 Neut # (Auto) 4.3 x10^3/uL (2.2-4.8) 11/22/20 06:14 Lymph # (Auto) 1.0 X10^3/uL (1.3-2.9) L 11/22/20 06:14 [place] # (Auto) 1.1 x10^3/uL (0.3-0.8) H 11/22/20 06:14 Eos # (Auto) 0.4 x10^3/uL (0.0-0.2) H 11/22/20 06:14 Baso # (Auto) 0.2 X10^3/uL (0.0-0.1) H 11/22/20 06:14 Absolute Nucleated RBC 0.0 /100WBC 11/22/20 06:14 Total Counted 100 11/20/20 05:29 Neutrophils % (Manual) 63 % (39-76) 11/20/20 05:29 Lymphocytes % (Manual) 20 % (13-43) 11/20/20 05:29 Monocytes % (Manual) 12 % (4-9) H 11/20/20 05:29 Eosinophils % (Manual) 5 % (0-6) 11/20/20 05:29 Plt Morphology Comment Normal (NORMAL) 11/20/20 05:29 RBC Morphology Normal (NORMAL) 11/20/20 05:29 Sodium 143 mmol/L (136-145) 11/22/20 06:14 Corrected Sodium TNP 11/22/20 06:14 Potassium 4.7 mmol/L (3.5-5.1) 11/22/20 06:14 Chloride 111 mmol/L (98-107) H 11/22/20 06:14 Carbon Dioxide 23.4 mmol/L (21-32) 11/22/20 06:14 BUN 21 mg/dL (7-18) H 11/22/20 06:14 Creatinine 1.58 mg/dL (0.55-1.02) H 11/22/20 06:14 Est GFR (MDRD) Af Amer 40 (>60) L 11/22/20 06:14 Est GFR (MDRD) Non-Af 33 (>60) L 11/22/20 06:14 Glucose 87 mg/dL (65-99) 11/22/20 06:14 POC Glucose (mg/dL) 100 mg/dL (65-99) H 11/21/20 16:38 Calcium 7.7 mg/dL (8.5-10.1) L 11/22/20 06:14 Corrected Calcium TNP 11/20/20 05:29 Total Bilirubin 0.30 mg/dL (0.2-1.0) 11/20/20 05:29 AST 24 Units/L (15-37) 11/20/20 05:29 ALT 29 Units/L (12-78) 11/20/20 05:29 Alkaline Phosphatase 48 Units/L (46-116) 11/20/20 05:29 Creatine Kinase 67 Units/L (26-192) 11/19/20 14:06 CK-MB (CK-2) 2.0 ng/mL (0-4.0) 11/19/20 14:06 CK/CKMB % Calc 3.0 % (<4) 11/19/20 14:06 Troponin I < 0.02 ng/mL (0-1.5) 11/19/20 14:06 Total Protein 6.7 g/dL (6.4-8.2) 11/20/20 05:29 Albumin 3.5 g/dL (3.4-5.0) 11/20/20 05:29 Globulin 3.2 g/dL (2.5-4.5) 11/20/20 05:29 Albumin/Globulin Ratio 1.1 Ratio (1.1-2.1) 11/20/20 05:29 Specimen Type Clean catch urine 11/19/20 11:55 Urine Color Bee (YELLOW) 11/19/20 11:55 Urine Appearance Clear (CLEAR) 11/19/20 11:55 Urine pH 5.0 (5.0 - 8.0) 11/19/20 11:55 Ur Specific [place] 1.010 (1.000-1.030) 11/19/20 11:55 Urine Protein 3+ (NEGATIVE) 11/19/20 11:55 Urine Glucose (UA) Negative (NEGATIVE) 11/19/20 11:55 Urine Ketones Negative (NEGATIVE) 11/19/20 11:55 Urine Occult Blood 2+ (NEGATIVE) 11/19/20 11:55 Urine Nitrite Positive (NEGATIVE) 11/19/20 11:55 Urine Bilirubin Negative (NEGATIVE) 11/19/20 11:55 Urine Urobilinogen 1+ (NORMAL) 11/19/20 11:55 Ur Leukocyte Esterase 2+ (NEGATIVE) 11/19/20 11:55 Urine RBC 0-2 /HPF (0-3) 11/19/20 11:55 Urine WBC 10-20 /HPF (0-5) A 11/19/20 11:55 Ur Squamous Epith Cells Few /HPF (NEGATIVE) 11/19/20 11:55 Urine Bacteria 2+ /HPF (NEGATIVE) 11/19/20 11:55 Ur Culture Indicated? Yes/culture set up 11/19/20 11:55 SARS CoV-2 RNA Rapid DISHA Negative (NEGATIVE) 11/19/20 16:42 - Plan (1) Acute renal failure Status: Acute Qualifiers: Acute renal failure type: unspecified Qualified Code(s): N17.9 - Acute kidney failure, unspecified Plan: CONTINUE IV FLUIDS (2) Acute hyperkalemia Status: Acute (3) UTI (urinary tract infection) Status: Acute Qualifiers: Urinary tract infection type: acute cystitis Hematuria presence: without hematuria Qualified Code(s): N30.00 - Acute cystitis without hematuria Plan: CONTINUE ROCEPHIN, CONTINUE IV FLUIDS (4) Pacemaker Status: Chronic (5) Urinary incontinence Status: Chronic Qualifiers: Urinary Incontinence type: unspecified incontinence (6) Atrial fibrillation Status: Chronic Qualifiers: Atrial fibrillation type: unspecified chronic Qualified Code(s): I48.20 - Chronic atrial fibrillation, unspecified
[2020-11-22] MEDS ORDERED: CHLORASEPTIC SPRAY MT PRN (15:14)
[2020-11-22] MEDS: REQUIP PO SCH (21:40)
[2020-11-23] MEDS: SNACK - Diabetic Appropriate PO SCH ×2 (04:08→05:16)
[2020-11-23] MEDS: NS 1000 ML 1,000 ML IV SCH ×2 (04:08→05:20)
[2020-11-23 06:50] LABS: BASOPHILS # (AUTO) 0.1 X10^3/uL (0.0-0.1); BASOPHILS % (AUTO) 1.2 % (0.2-1.0); EOSINOPHILS # (AUTO) 0.4 x10^3/uL (0.0-0.2); EOSINOPHILS % (AUTO) 4.8 % (0.9-2.9); HEMATOCRIT 36.3 % (36.0-47.0); HEMOGLOBIN 12.2 g/dL (12.0-16.0); LYMPHOCYTES # (AUTO) 1.1 X10^3/uL (1.3-2.9); LYMPHOCYTES % (AUTO) 13.7 % (21.0-51.0); MEAN CORPUSCULAR HEMOGLOBIN 32.7 pg (27.0-34.0); MEAN CORPUSCULAR HGB CONC 33.6 g/dL (33.0-35.0); MEAN CORPUSCULAR VOLUME 97.2 fL (80.0-100.0); MEAN PLATELET VOLUME 8.2 fL (7.4-11.0); MONOCYTES # (AUTO) 1.1 x10^3/uL (0.3-0.8); MONOCYTES % (AUTO) 13.8 % (0.0-13.0); NEUTROPHILS # (AUTO) 5.5 x10^3/uL (2.2-4.8); NEUTROPHILS % (AUTO) 66.5 % (42.0-75.0); PLATELET COUNT 194 X10^3/uL (150.0-450.0); RED BLOOD COUNT 3.73 X10^6/uL (3.5-5.4); RED CELL DISTRIBUTION WIDTH 13.7 % (11.6-16.5); WHITE BLOOD COUNT 8.3 X10^3/uL (3.6-10.0)
[2020-11-23 07:11] LABS: ALANINE AMINOTRANSFERASE 23 Units/L (12-78); ALBUMIN 2.7 g/dL (3.4-5.0); ALKALINE PHOSPHATASE 48 Units/L (46-116); ASPARTATE AMINO TRANSFERASE 19 Units/L (15-37); BLOOD UREA NITROGEN 15 mg/dL (7-18); CALCIUM 7.8 mg/dL (8.5-10.1); CARBON DIOXIDE 23.5 mmol/L (21-32); CHLORIDE 109 mmol/L (98-107); COR CA(FOR HYPOALB) 8.8 mg/dL (8.5-10.1); CREATININE 1.34 mg/dL (0.55-1.02); SODIUM 140 mmol/L (136-145); TOTAL PROTEIN 5.8 g/dL (6.4-8.2); eGFR NON BLACK RACES 40 (>60)
[2020-11-23 08:45] VITALS: BP 196/79
[2020-11-23] MEDS: COREG TAB 25 MG PO SCH (09:35)
[2020-11-23] MEDS: ELIQUIS PO SCH (09:36)
[2020-11-23] MEDS: ROCEPHIN VIAL 1 GRAM 1 G in NS 100 ML IV + SPIKE MINIBAG* 100 ML IV SCH (09:36)
== END 2020-11-23 11:55 | disposition home health service (06) | DRG 683 ==
LOC: ER 11:24 → MED/SURG 17:37
PROVIDERS: ADMIT Internal Medicine; ATTEND Internal Medicine
DX: B96.1 Klebsiella pneumoniae [K. pneumoniae] as the cause of diseases classified elsewhere; I48.91 Unspecified atrial fibrillation; R32 Unspecified urinary incontinence; Z95.0 Presence of cardiac pacemaker; R05 Cough; Z20.822 Contact with and (suspected) exposure to COVID-19; I10 Essential (primary) hypertension; R26.89 Other abnormalities of gait and mobility; R53.1 Weakness; N17.9 Acute kidney failure, unspecified; N30.00 Acute cystitis without hematuria; E87.5 Hyperkalemia